=== PATIENT | female | born 1975 | race African-American/Black ===

== ENCOUNTER 2018-12-14 13:51 | Emergency (ER) | payer MEDICAID ==
[~2018-12-14] VITALS: Ht 165.1 cm; Wt 61.0 kg
[2018-12-14] MEDS ORDERED: KETOROLAC 60MG/2ML VIAL IM ONE (14:30)
[2018-12-14] MEDS ORDERED: CYCLOBENZAPRINE 10MG TABLET PO ONE (14:30)
[2018-12-14 15:15] VITALS: BP 135/85
== END 2018-12-14 15:15 | disposition home or self-care (01) ==
LOC: ER 13:51
DX: S16.1XXA Strain of muscle, fascia and tendon at neck level, initial encounter (principal); R56.9 Unspecified convulsions; I69.351 Hemiplegia and hemiparesis following cerebral infarction affecting right dominant side; I69.320 Aphasia following cerebral infarction; V43.62XA Car passenger injured in collision with other type car in traffic accident, initial encounter; Y93.9 Activity, unspecified; Y92.410 Unspecified street and highway as the place of occurrence of the external cause; Z88.6 Allergy status to analgesic agent; Z88.8 Allergy status to other drugs, medicaments and biological substances; Z85.841 Personal history of malignant neoplasm of brain; Z90.710 Acquired absence of both cervix and uterus; Z98.890 Other specified postprocedural states
CPT/HCPCS: 99283; J1885; Z7610